=== PATIENT | female | born 1965 | race Caucasian/White ===

== ENCOUNTER 2020-04-13 10:18 | Emergency (ER) | payer MEDICAID ==
[2020-04-13] MEDS ORDERED: Sodium Chloride 0.9% 1,000 ML IV ONE (10:22)
[2020-04-13] MEDS ORDERED: Sodium Chloride 0.9% 10 ML Syringe FLUSH PRN (10:22)
--- NOTE | 2020-04-13 10:38 | EDM.PDOC ---
ED HPI GENERAL MEDICAL PROBLEM - General Chief Complaint: Syncope Stated Complaint: Near syncope Time Seen by Provider: 04/13/20 10:30 Source of Information: Reports: Patient, EMS History Limitations: Reports: No Limitations - History of Present Illness INITIAL COMMENTS - FREE TEXT/NARRATIVE: Presents with a near syncopal episode at work. 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 She did not lose consciousness, there was no trauma. Patient was wearing a face shield at work, and states she doesn't tolerated it well. She also states she hasn't eaten today due to abdominal pain from IBS. She was prescribed a new IBS medication because she didn't tolerate the side effects. Planned to start the new medication today after work. Patient had an episode of emesis in the ambulance, EMS gave Zofran 4mg IM. PMHx includes IBS and HTN. Complains of abdominal pain. Denies chest pain or SOB. Patient refuses to open her eyes but answers questions appropriately. Denies alcohol or drug use, and does not smoke. Onset: Today, Sudden Severity: Moderate - Related Data Allergies Allergy/AdvReac Type Severity Reaction Status Date / Time aspirin Allergy Hives Verified 04/13/20 10:39 fluconazole [From Diflucan] Allergy Hives Verified 04/13/20 10:39 Home Meds: Home Meds Lisinopril 20 mg PO DAILY 06/30/16 [History] Pnv95/Iron Fum/Folic Acid [ Caplet] 1 each PO DAILY 06/30/16 [History] Cefuroxime [Ceftin] 250 mg PO BID #14 tab 04/13/20 [Rx] Past Medical History Cardiovascular History: Reports: Hypertension. Denies: CAD Gastrointestinal History: Reports: Irritable Bowel Syndrome Social & Family History - Tobacco Use Tobacco Use Within Last Twelve Months: No - Caffeine Use Caffeine Use: Reports: Coffee, Soda - Alcohol Use Alcohol Use History: No Alcohol Use in Last Twelve Months: No - Recreational Drug Use Recreational Drug Use: No ED ROS GENERAL - Review of Systems Review Of Systems: Comprehensive ROS is negative, except as noted in HPI. ED EXAM, NEURO - Physical Exam Exam: See Below Exam Limited By: No Limitations General Appearance: Alert, WD/WN, No Apparent Distress Eye Exam: Bilateral Eye: EOMI, PERRL Throat/Mouth: Normal Inspection, Normal Lips, Normal Teeth, Normal Oropharynx, No Airway Compromise Head Exam: Atraumatic, Normocephalic Neck: Supple Respiratory/Chest: No Respiratory Distress, Lungs Clear, Normal Breath Sounds Cardiovascular: Regular Rate, Rhythm, No Murmur GI/Abdominal: Normal Bowel Sounds, Soft, No Distention, Tender (epigastric). No: Guarding Neurological: Alert, Normal Mood/Affect, CN II-XII Intact, No Motor/Sensory Deficits, Oriented x 3, Other (GCS 14) Extremities: Normal Inspection, Normal Range of Motion, No Pedal Edema Psychiatric: Normal Affect, Normal Mood Skin Exam: Warm, Dry, Intact, Normal Color, No Rash EKG INTERPRETATION EKG Date: 04/13/20 Time: 10:24 Rhythm: NSR Rate (Beats/Min): 76 [place]: Normal P-Wave: Present QRS: Normal ST-T: Normal QT: Normal Comparison: NA - No Prior EKG Course - Vital Signs Last Recorded V/S: Last Vital Signs Temp 35.9 C L 04/13/20 10:20 Pulse 75 04/13/20 10:20 Resp 17 04/13/20 10:20 BP 131/90 04/13/20 10:20 Pulse Ox 99 04/13/20 10:20 - Orders/Labs/Meds Orders: Active Orders 24 hr Category Date Time Status EKG Documentation Completion [RC] ASDIRECTED Care 04/13/20 10:22 Active CULTURE BLOOD [BC] Urgent Lab 04/13/20 10:35 Received CULTURE BLOOD [BC] Urgent Lab 04/13/20 10:40 Received CULTURE URINE [RM] Stat Lab 04/13/20 12:15 Ordered Cefuroxime [Ceftin] Med 04/13/20 12:18 Once 250 mg PO ONETIME ONE Sodium Chloride 0.9% [Saline Flush] Med 04/13/20 10:22 Active 10 ml FLUSH ASDIRECTED PRN Blood Culture x2 Reflex Set [OM.PC] Urgent Oth 04/13/20 10:32 Ordered Saline Lock Insert [OM.PC] Routine Oth 04/13/20 10:22 Ordered EKG 12 Lead [EK] Stat Ther 04/13/20 10:21 Ordered Medication Orders Sodium Chloride (Saline Flush) 10 ml FLUSH ASDIRECTED PRN PRN Reason: Keep Vein Open Labs: Laboratory Tests 04/13/20 04/13/20 04/13/20 Range/Units 10:35 10:35 10:35 WBC 7.8 (4.5-12.0) X10-3/uL RBC 4.25 (3.23-5.20) x10(6)uL Hgb 14.5 (11.5-15.5) g/dL Hct 43.2 (30.0-51.3) % MCV 101.8 H (80-96) fL MCH 34.2 H (27.7-33.6) pg MCHC 33.6 (32.2-35.4) g/dL RDW 12.1 (11.5-15.5) % Plt Count 192 (125-369) X10(3)uL MPV 6.5 L (7.4-10.4) fL Neut % (Auto) 69.3 (46-82) % Lymph % (Auto) 23.3 (13-37) % [place] % (Auto) 5.5 (4-12) % Eos % (Auto) 1 (1.0-5.0) % Baso % (Auto) 1 (0-2) % Neut # (Auto) 5.5 (1.6-8.3) # Lymph # (Auto) 1.8 (0.6-5.0) # [place] # (Auto) 0.4 (0.0-1.3) # Eos # (Auto) 0.1 (0.0-0.8) # Baso # (Auto) 0.0 (0.0-0.2) # PT (9.0-11.1) sec INR (1.00-1.24) APTT (24.4-33.2) SECONDS Sodium 137 (135-145) mmol/L Potassium 3.4 L (3.5-5.3) mmol/L Chloride 102 (100-110) mmol/L Carbon Dioxide 23 (21-32) mmol/L BUN 14 (7-18) mg/dL Creatinine 0.7 (0.55-1.02) mg/dL Est Cr Clr Drug Dosing TNP Estimated GFR (MDRD) > 60 (>60) BUN/Creatinine Ratio 20.0 (9-20) Glucose 175 H (80-116) mg/dL Lactic Acid 2.0 (0.4-2.0) mmol/L Calcium 9.0 (8.6-10.2) mg/dL Magnesium (1.8-2.5) mg/dL Total Bilirubin 0.7 (0.1-1.3) mg/dL AST 19 (5-25) IU/L ALT 22 (12-36) U/L Alkaline Phosphatase 97 (56-112) IU/L Troponin I (4.0-60.3) pg/mL Total Protein 7.8 (6.0-8.0) g/dL Albumin 3.9 (3.5-5.2) g/dL Globulin 3.9 g/dL Albumin/Globulin Ratio 1.0 Lipase (73-393) U/L Urine Color (YELLOW) Urine Appearance (CLEAR) Urine pH (5.0-6.5) Ur Specific [place] (1.010-1.025) Urine Protein (NEGATIVE) mg/dL Urine Glucose (UA) (NORMAL) mg/dL Urine Ketones (NEGATIVE) mg/dL Urine Occult Blood (NEGATIVE) Urine Nitrite (NEGATIVE) Urine Bilirubin (NEGATIVE) Urine Urobilinogen (NEGATIVE) mg/dL Ur Leukocyte Esterase (NEGATIVE) Urine WBC (0-5) Ur Squamous Epith Cells (NS,R,O) Urine Bacteria (NS) Urine Opiates Screen (NEGATIVE) Ur Oxycodone Screen (NEGATIVE) Ur Propoxyphene Screen (NEGATIVE) Ur Barbituates Screen (NEGATIVE) Ur Tricyclics Screen (NEGATIVE) Ur Phencyclidine Scrn (NEGATIVE) Ur Amphetamine Screen (NEGATIVE) Urine MDMA Screen (NEGATIVE) U Benzodiazepines Scrn (NEGATIVE) U Cocaine Metab Screen (NEGATIVE) U Marijuana (THC) Screen (NEGATIVE) Ethyl Alcohol (<0.03) % 04/13/20 04/13/20 04/13/20 Range/Units 10:35 10:35 10:35 WBC (4.5-12.0) X10-3/uL RBC (3.23-5.20) x10(6)uL Hgb (11.5-15.5) g/dL Hct (30.0-51.3) % MCV (80-96) fL MCH (27.7-33.6) pg MCHC (32.2-35.4) g/dL RDW (11.5-15.5) % Plt Count (125-369) X10(3)uL MPV (7.4-10.4) fL Neut % (Auto) (46-82) % Lymph % (Auto) (13-37) % [place] % (Auto) (4-12) % Eos % (Auto) (1.0-5.0) % Baso % (Auto) (0-2) % Neut # (Auto) (1.6-8.3) # Lymph # (Auto) (0.6-5.0) # [place] # (Auto) (0.0-1.3) # Eos # (Auto) (0.0-0.8) # Baso # (Auto) (0.0-0.2) # PT 10.7 (9.0-11.1) sec INR 0.99 L (1.00-1.24) APTT 23.3 L (24.4-33.2) SECONDS Sodium (135-145) mmol/L Potassium (3.5-5.3) mmol/L Chloride (100-110) mmol/L Carbon Dioxide (21-32) mmol/L BUN (7-18) mg/dL Creatinine (0.55-1.02) mg/dL Est Cr Clr Drug Dosing Estimated GFR (MDRD) (>60) BUN/Creatinine Ratio (9-20) Glucose (80-116) mg/dL Lactic Acid (0.4-2.0) mmol/L Calcium (8.6-10.2) mg/dL Magnesium 1.7 L (1.8-2.5) mg/dL Total Bilirubin (0.1-1.3) mg/dL AST (5-25) IU/L ALT (12-36) U/L Alkaline Phosphatase (56-112) IU/L Troponin I < 4.0 L (4.0-60.3) pg/mL Total Protein (6.0-8.0) g/dL Albumin (3.5-5.2) g/dL Globulin g/dL Albumin/Globulin Ratio Lipase (73-393) U/L Urine Color (YELLOW) Urine Appearance (CLEAR) Urine pH (5.0-6.5) Ur Specific [place] (1.010-1.025) Urine Protein (NEGATIVE) mg/dL Urine Glucose (UA) (NORMAL) mg/dL Urine Ketones (NEGATIVE) mg/dL Urine Occult Blood (NEGATIVE) Urine Nitrite (NEGATIVE) Urine Bilirubin (NEGATIVE) Urine Urobilinogen (NEGATIVE) mg/dL Ur Leukocyte Esterase (NEGATIVE) Urine WBC (0-5) Ur Squamous Epith Cells (NS,R,O) Urine Bacteria (NS) Urine Opiates Screen (NEGATIVE) Ur Oxycodone Screen (NEGATIVE) Ur Propoxyphene Screen (NEGATIVE) Ur Barbituates Screen (NEGATIVE) Ur Tricyclics Screen (NEGATIVE) Ur Phencyclidine Scrn (NEGATIVE) Ur Amphetamine Screen (NEGATIVE) Urine MDMA Screen (NEGATIVE) U Benzodiazepines Scrn (NEGATIVE) U Cocaine Metab Screen (NEGATIVE) U Marijuana (THC) Screen (NEGATIVE) Ethyl Alcohol (<0.03) % 04/13/20 04/13/20 04/13/20 Range/Units 10:35 10:40 11:50 WBC (4.5-12.0) X10-3/uL RBC (3.23-5.20) x10(6)uL Hgb (11.5-15.5) g/dL Hct (30.0-51.3) % MCV (80-96) fL MCH (27.7-33.6) pg MCHC (32.2-35.4) g/dL RDW (11.5-15.5) % Plt Count (125-369) X10(3)uL MPV (7.4-10.4) fL Neut % (Auto) (46-82) % Lymph % (Auto) (13-37) % [place] % (Auto) (4-12) % Eos % (Auto) (1.0-5.0) % Baso % (Auto) (0-2) % Neut # (Auto) (1.6-8.3) # Lymph # (Auto) (0.6-5.0) # [place] # (Auto) (0.0-1.3) # Eos # (Auto) (0.0-0.8) # Baso # (Auto) (0.0-0.2) # PT (9.0-11.1) sec INR (1.00-1.24) APTT (24.4-33.2) SECONDS Sodium (135-145) mmol/L Potassium (3.5-5.3) mmol/L Chloride (100-110) mmol/L Carbon Dioxide (21-32) mmol/L BUN (7-18) mg/dL Creatinine (0.55-1.02) mg/dL Est Cr Clr Drug Dosing Estimated GFR (MDRD) (>60) BUN/Creatinine Ratio (9-20) Glucose (80-116) mg/dL Lactic Acid (0.4-2.0) mmol/L Calcium (8.6-10.2) mg/dL Magnesium (1.8-2.5) mg/dL Total Bilirubin (0.1-1.3) mg/dL AST (5-25) IU/L ALT (12-36) U/L Alkaline Phosphatase (56-112) IU/L Troponin I (4.0-60.3) pg/mL Total Protein (6.0-8.0) g/dL Albumin (3.5-5.2) g/dL Globulin g/dL Albumin/Globulin Ratio Lipase 72 L (73-393) U/L Urine Color Yellow (YELLOW) Urine Appearance Clear (CLEAR) Urine pH 8.0 H (5.0-6.5) Ur Specific [place] 1.015 (1.010-1.025) Urine Protein Negative (NEGATIVE) mg/dL Urine Glucose (UA) Normal (NORMAL) mg/dL Urine Ketones 15 H (NEGATIVE) mg/dL Urine Occult Blood Negative (NEGATIVE) Urine Nitrite Negative (NEGATIVE) Urine Bilirubin Negative (NEGATIVE) Urine Urobilinogen Normal (NEGATIVE) mg/dL Ur Leukocyte Esterase Small H (NEGATIVE) Urine WBC 5-10 H (0-5) Ur Squamous Epith Cells Few H (NS,R,O) Urine Bacteria Many H (NS) Urine Opiates Screen (NEGATIVE) Ur Oxycodone Screen (NEGATIVE) Ur Propoxyphene Screen (NEGATIVE) Ur Barbituates Screen (NEGATIVE) Ur Tricyclics Screen (NEGATIVE) Ur Phencyclidine Scrn (NEGATIVE) Ur Amphetamine Screen (NEGATIVE) Urine MDMA Screen (NEGATIVE) U Benzodiazepines Scrn (NEGATIVE) U Cocaine Metab Screen (NEGATIVE) U Marijuana (THC) Screen (NEGATIVE) Ethyl Alcohol < 0.03 (<0.03) % 04/13/20 Range/Units 11:50 WBC (4.5-12.0) X10-3/uL RBC (3.23-5.20) x10(6)uL Hgb (11.5-15.5) g/dL Hct (30.0-51.3) % MCV (80-96) fL MCH (27.7-33.6) pg MCHC (32.2-35.4) g/dL RDW (11.5-15.5) % Plt Count (125-369) X10(3)uL MPV (7.4-10.4) fL Neut % (Auto) (46-82) % Lymph % (Auto) (13-37) % [place] % (Auto) (4-12) % Eos % (Auto) (1.0-5.0) % Baso % (Auto) (0-2) % Neut # (Auto) (1.6-8.3) # Lymph # (Auto) (0.6-5.0) # [place] # (Auto) (0.0-1.3) # Eos # (Auto) (0.0-0.8) # Baso # (Auto) (0.0-0.2) # PT (9.0-11.1) sec INR (1.00-1.24) APTT (24.4-33.2) SECONDS Sodium (135-145) mmol/L Potassium (3.5-5.3) mmol/L Chloride (100-110) mmol/L Carbon Dioxide (21-32) mmol/L BUN (7-18) mg/dL Creatinine (0.55-1.02) mg/dL Est Cr Clr Drug Dosing Estimated GFR (MDRD) (>60) BUN/Creatinine Ratio (9-20) Glucose (80-116) mg/dL Lactic Acid (0.4-2.0) mmol/L Calcium (8.6-10.2) mg/dL Magnesium (1.8-2.5) mg/dL Total Bilirubin (0.1-1.3) mg/dL AST (5-25) IU/L ALT (12-36) U/L Alkaline Phosphatase (56-112) IU/L Troponin I (4.0-60.3) pg/mL Total Protein (6.0-8.0) g/dL Albumin (3.5-5.2) g/dL Globulin g/dL Albumin/Globulin Ratio Lipase (73-393) U/L Urine Color (YELLOW) Urine Appearance (CLEAR) Urine pH (5.0-6.5) Ur Specific [place] (1.010-1.025) Urine Protein (NEGATIVE) mg/dL Urine Glucose (UA) (NORMAL) mg/dL Urine Ketones (NEGATIVE) mg/dL Urine Occult Blood (NEGATIVE) Urine Nitrite (NEGATIVE) Urine Bilirubin (NEGATIVE) Urine Urobilinogen (NEGATIVE) mg/dL Ur Leukocyte Esterase (NEGATIVE) Urine WBC (0-5) Ur Squamous Epith Cells (NS,R,O) Urine Bacteria (NS) Urine Opiates Screen Negative (NEGATIVE) Ur Oxycodone Screen Negative (NEGATIVE) Ur Propoxyphene Screen Negative (NEGATIVE) Ur Barbituates Screen Negative (NEGATIVE) Ur Tricyclics Screen Negative (NEGATIVE) Ur Phencyclidine Scrn Negative (NEGATIVE) Ur Amphetamine Screen Negative (NEGATIVE) Urine MDMA Screen Negative (NEGATIVE) U Benzodiazepines Scrn Negative (NEGATIVE) U Cocaine Metab Screen Negative (NEGATIVE) U Marijuana (THC) Screen Negative (NEGATIVE) Ethyl Alcohol (<0.03) % Meds: Medications Generic Name Dose Route Start Last Admin Trade Name Freq PRN Reason Stop Dose Admin Sodium Chloride 10 ml 04/13/20 10:22 Saline Flush FLUSH ASDIRECTED PRN Keep Vein Open Discontinued Medications Generic Name Dose Route Start Last Admin Trade Name Freq PRN Reason Stop Dose Admin Sodium Chloride 1,000 mls @ 999 mls/hr 04/13/20 10:22 04/13/20 10:48 Normal Saline IV 04/13/20 11:22 999 mls/hr .BOLUS ONE Administration - Re-Assessments/Exams Free Text/Narrative Re-Assessment/Exam: 04/13/20 11:33 Feeling better. Eyes open. GCS=15 Departure - Departure Time of Disposition: 12:19 Disposition: Home, Self-Care 01 Condition: Good Clinical Impression: Near syncope UTI (urinary tract infection) Qualifiers: Urinary tract infection type: acute cystitis Hematuria presence: without hematuria Qualified Code(s): N30.00 - Acute cystitis without hematuria - Discharge Information *PRESCRIPTION DRUG MONITORING PROGRAM REVIEWED*: No *COPY OF PRESCRIPTION DRUG MONITORING REPORT IN PATIENT KAY: Not Applicable Prescriptions: Cefuroxime [Ceftin] 250 mg PO BID #14 tab Referrals: Luz Maria Mcclelland NP [Primary Care Provider] - 3 Days Forms: ED Department Discharge, ED Return to Work/School Form Additional Instructions: Rest, drink plenty of fluids. [facility] [place] in [place]. Start your new IBS medication today. Follow up with your primary physician in 2-3 days. Return to the ER as needed. Sepsis Event Note (ED) - Focused Exam Vital Signs: Vital Signs Temp Pulse Resp BP Pulse Ox 04/13/20 10:20 35.9 C L 75 17 131/90 99 - My Orders Last 24 Hours: My Active Orders 04/13/20 10:21 EKG 12 Lead [EK] Stat 04/13/20 10:22 EKG Documentation Completion [RC] ASDIRECTED Sodium Chloride 0.9% [Saline Flush] 10 ml FLUSH ASDIRECTED PRN Saline Lock Insert [OM.PC] Routine 04/13/20 10:32 Blood Culture x2 Reflex Set [OM.PC] Urgent 04/13/20 10:35 CULTURE BLOOD [BC] Urgent 04/13/20 10:40 CULTURE BLOOD [BC] Urgent 04/13/20 12:15 CULTURE URINE [RM] Stat 04/13/20 12:18 Cefuroxime [Ceftin] 250 mg PO ONETIME ONE - Assessment/Plan Last 24 Hours: My Active Orders 04/13/20 10:21 EKG 12 Lead [EK] Stat 04/13/20 10:22 EKG Documentation Completion [RC] ASDIRECTED Sodium Chloride 0.9% [Saline Flush] 10 ml FLUSH ASDIRECTED PRN Saline Lock Insert [OM.PC] Routine 04/13/20 10:32 Blood Culture x2 Reflex Set [OM.PC] Urgent 04/13/20 10:35 CULTURE BLOOD [BC] Urgent 04/13/20 10:40 CULTURE BLOOD [BC] Urgent 04/13/20 12:15 CULTURE URINE [RM] Stat 04/13/20 12:18 Cefuroxime [Ceftin] 250 mg PO ONETIME ONE
[2020-04-13 10:58] VITALS: BP 131/90; PULSE 75
[2020-04-13] MEDS ORDERED: Cefuroxime 250 MG Tab PO ONE (12:18)
== END 2020-04-13 13:56 | disposition home or self-care (01) ==
LOC: FB.ED 10:18
DX: N30.00 Acute cystitis without hematuria (principal); R55 Syncope and collapse; I10 Essential (primary) hypertension; Z88.6 Allergy status to analgesic agent; Z88.1 Allergy status to other antibiotic agents; Z79.899 Other long term (current) drug therapy
CPT/HCPCS: 36415; 80053; 80305; 80307; 81001; 83605; 83690; 83735; 84484; 85025; 85610; 85730; 87040; 87086; 87088; 87186; 93005; 96360; 99284; A9270; J7030

== ENCOUNTER 2020-05-24 11:38 | Emergency (ER) | payer MEDICAID, OTHER ==
[2020-05-24] MEDS ORDERED: Ondansetron 4 MG Tab.DIS PO ONE (11:39)
[2020-05-24] MEDS ORDERED: Meclizine 25 MG Tab PO ONE (11:39)
[2020-05-24] MEDS ORDERED: LORazepam 2 MG/ML SDV IVPUSH STA (12:09)
[2020-05-24] MEDS ORDERED: Meclizine 25 MG Tab PO STA (12:09)
[2020-05-24] MEDS ORDERED: Ondansetron 4 MG/2 ML SDV IVPUSH STA (12:09)
[2020-05-24] MEDS ORDERED: Sodium Chloride 0.9% 1,000 ML IV SCH (12:15)
[2020-05-24] MEDS ORDERED: Iopamidol 755 Mg/ML 100 ML Bottle IV ONE (13:26)
[2020-05-24] MEDS ORDERED: Metoclopramide 10 MG/2 ML SDV IVPUSH ONE (14:12)
--- NOTE | 2020-05-24 14:40 | EDM.PDOC ---
ED HPI GENERAL MEDICAL PROBLEM - General Chief Complaint: Neuro Symptoms/Deficits Time Seen by Provider: 05/24/20 12:00 Source of Information: Reports: Patient History Limitations: Reports: No Limitations - History of Present Illness INITIAL COMMENTS - FREE TEXT/NARRATIVE: Patient presented to the ED because of a near syncopal episode. She was in the bathroom when all of a sudden she have vertigo nausea and vomiting. Denies any chest pain, palpitations. There is no headache, tinnitus, cough/cold fever or chills. abdomen Pain Score (Numeric/FACES): 6 - Related Data Allergies Allergy/AdvReac Type Severity Reaction Status Date / Time aspirin Allergy Hives Verified 05/24/20 11:58 fluconazole [From Diflucan] Allergy Hives Verified 05/24/20 11:58 Home Meds: Home Meds Hyoscyamine [Levsin] 0.125 mg PO TID PRN 05/24/20 [History] Meclizine [Antivert] 25 mg PO Q6H PRN #15 tab.chew 05/24/20 [Rx] Ondansetron [Zofran ODT] 4 mg PO Q4H PRN #7 tab.dis 05/24/20 [Rx] amLODIPine [Norvasc] 5 mg PO DAILY 05/24/20 [History] Past Medical History - Past Health History Medical/Surgical History: Denies Medical/Surgical History HEENT History: Reports: Impaired Vision Cardiovascular History: Reports: Hypertension Other Cardiovascular History: on amlodipine. 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 Neurological History: Reports: Other (See Below) Other Neuro History: syncopal episode. Social & Family History - Family History Family Medical History: Noncontributory - Tobacco Use Smoking Status *Q: Never Smoker Second Hand Smoke Exposure: No - Caffeine Use Caffeine Use: Reports: Coffee - Recreational Drug Use Recreational Drug Use: No ED ROS GENERAL - Review of Systems Review Of Systems: See Below Constitutional: Reports: No Symptoms HEENT: Reports: No Symptoms Respiratory: Reports: No Symptoms Cardiovascular: Reports: No Symptoms Endocrine: Reports: No Symptoms GI/Abdominal: Reports: Abdominal Pain, Nausea. Denies: Vomiting : Reports: No Symptoms Musculoskeletal: Reports: No Symptoms Skin: Reports: No Symptoms Neurological: Reports: No Symptoms ED EXAM, GENERAL - Physical Exam Exam: See Below Exam Limited By: No Limitations General Appearance: Alert, No Apparent Distress Eye Exam: Bilateral Eye: PERRL Ears: Normal External Exam, Normal Canal Nose: Normal Inspection, Normal Mucosa Throat/Mouth: Normal Inspection, Normal Lips, Normal Teeth Head: Atraumatic, Normocephalic Neck: Normal Inspection, Supple, Non-Tender, Full Range of Motion Respiratory/Chest: No Respiratory Distress, Lungs Clear, Normal Breath Sounds Cardiovascular: Normal Peripheral Pulses, Regular Rate, Rhythm, No Edema, No Gallop GI/Abdominal: Normal Bowel Sounds, Soft, Non-Tender, No Organomegaly Back Exam: Normal Inspection, Full Range of Motion Extremities: Normal Inspection, Normal Range of Motion, Non-Tender Neurological: Alert, Oriented, CN II-XII Intact, Normal Cognition Psychiatric: Normal Affect, Normal Mood Skin Exam: Warm, Dry, Intact, Normal Color, No Rash Course - Vital Signs Text/Narrative:: Labs,EKG,CXR,Head CT result was discussed with patient NS 1 L bolus Zofran 4 mg IV x1 Reglan 10 mg IV x1 Meclizine 50 mg po x1 Last Recorded V/S: Last Vital Signs Temp 36.3 C 05/24/20 11:55 Pulse 82 05/24/20 14:45 Resp 17 05/24/20 14:45 BP 131/81 05/24/20 14:45 Pulse Ox 99 05/24/20 14:45 - Orders/Labs/Meds Orders: Active Orders 24 hr Category Date Time Status Abdomen Pelvis w Cont [CT] Stat Exams 05/24/20 12:15 Taken Chest 1V Frontal [CR] Stat Exams 05/24/20 12:14 Taken EKG 12 Lead [EK] Routine Ther 05/24/20 12:07 Ordered EKG 12 Lead [EK] Routine Ther 05/24/20 12:14 Ordered Labs: Laboratory Tests 05/24/20 05/24/20 05/24/20 Range/Units 12:40 12:40 12:40 WBC 10.8 (4.5-12.0) X10-3/uL RBC 4.01 (3.23-5.20) x10(6)uL Hgb 13.7 (11.5-15.5) g/dL Hct 40.4 (30.0-51.3) % MCV 100.9 H (80-96) fL MCH 34.1 H (27.7-33.6) pg MCHC 33.8 (32.2-35.4) g/dL RDW 11.8 (11.5-15.5) % Plt Count 214 (125-369) X10(3)uL MPV 5.8 L (7.4-10.4) fL Add Manual Diff Yes Neutrophils % (Manual) 92 H (46-82) % Lymphocytes % (Manual) 7 L (13-37) % Monocytes % (Manual) 1 L (4-12) % Macrocytosis Few Sodium 140 (135-145) mmol/L Potassium 3.6 (3.5-5.3) mmol/L Chloride 103 (100-110) mmol/L Carbon Dioxide 26 (21-32) mmol/L BUN 14 (7-18) mg/dL Creatinine 0.6 (0.55-1.02) mg/dL Est Cr Clr Drug Dosing TNP Estimated GFR (MDRD) > 60 (>60) BUN/Creatinine Ratio 23.3 H (9-20) Glucose 138 H (80-116) mg/dL Calcium 8.7 (8.6-10.2) mg/dL Total Bilirubin 1.1 (0.1-1.3) mg/dL AST 26 H D (5-25) IU/L ALT 25 D (12-36) U/L Alkaline Phosphatase 92 (56-112) IU/L Total Protein 7.5 (6.0-8.0) g/dL Albumin 3.9 (3.5-5.2) g/dL Globulin 3.6 g/dL Albumin/Globulin Ratio 1.1 Amylase 56 (25-115) U/L Lipase 84 (73-393) U/L Urine Color (YELLOW) Urine Appearance (CLEAR) Urine pH (5.0-6.5) Ur Specific [place] (1.010-1.025) Urine Protein (NEGATIVE) mg/dL Urine Glucose (UA) (NORMAL) mg/dL Urine Ketones (NEGATIVE) mg/dL Urine Occult Blood (NEGATIVE) Urine Nitrite (NEGATIVE) Urine Bilirubin (NEGATIVE) Urine Urobilinogen (NEGATIVE) mg/dL Ur Leukocyte Esterase (NEGATIVE) Urine WBC (0-5) Ur Squamous Epith Cells (NS,R,O) Urine Bacteria (NS) 05/24/20 Range/Units 13:20 WBC (4.5-12.0) X10-3/uL RBC (3.23-5.20) x10(6)uL Hgb (11.5-15.5) g/dL Hct (30.0-51.3) % MCV (80-96) fL MCH (27.7-33.6) pg MCHC (32.2-35.4) g/dL RDW (11.5-15.5) % Plt Count (125-369) X10(3)uL MPV (7.4-10.4) fL Add Manual Diff Neutrophils % (Manual) (46-82) % Lymphocytes % (Manual) (13-37) % Monocytes % (Manual) (4-12) % Macrocytosis Sodium (135-145) mmol/L Potassium (3.5-5.3) mmol/L Chloride (100-110) mmol/L Carbon Dioxide (21-32) mmol/L BUN (7-18) mg/dL Creatinine (0.55-1.02) mg/dL Est Cr Clr Drug Dosing Estimated GFR (MDRD) (>60) BUN/Creatinine Ratio (9-20) Glucose (80-116) mg/dL Calcium (8.6-10.2) mg/dL Total Bilirubin (0.1-1.3) mg/dL AST (5-25) IU/L ALT (12-36) U/L Alkaline Phosphatase (56-112) IU/L Total Protein (6.0-8.0) g/dL Albumin (3.5-5.2) g/dL Globulin g/dL Albumin/Globulin Ratio Amylase (25-115) U/L Lipase (73-393) U/L Urine Color Yellow (YELLOW) Urine Appearance Clear (CLEAR) Urine pH 7.0 H (5.0-6.5) Ur Specific [place] 1.010 (1.010-1.025) Urine Protein Negative (NEGATIVE) mg/dL Urine Glucose (UA) Normal (NORMAL) mg/dL Urine Ketones 15 H (NEGATIVE) mg/dL Urine Occult Blood Negative (NEGATIVE) Urine Nitrite Negative (NEGATIVE) Urine Bilirubin Negative (NEGATIVE) Urine Urobilinogen Normal (NEGATIVE) mg/dL Ur Leukocyte Esterase Negative (NEGATIVE) Urine WBC 0-5 (0-5) Ur Squamous Epith Cells Few H (NS,R,O) Urine Bacteria Few H (NS) Meds: Medications Discontinued Medications Generic Name Dose Route Start Last Admin Trade Name Freq PRN Reason Stop Dose Admin Sodium Chloride 1,000 mls @ 999 mls/hr 05/24/20 12:15 05/24/20 12:17 Normal Saline IV 999 mls/hr ASDIRECTED TIA Administration Iopamidol 77 ml 05/24/20 13:26 05/24/20 13:38 Isovue-370 (76%) IV 05/24/20 13:27 77 ml . DIRECTED ONE Administration Lorazepam 1 mg 05/24/20 12:09 05/24/20 12:17 Ativan IVPUSH 05/24/20 12:10 1 mg NOW STA Administration Meclizine HCl 50 mg 05/24/20 12:09 05/24/20 12:17 Antivert PO 05/24/20 12:10 50 mg NOW STA Administration Metoclopramide HCl 10 mg 05/24/20 14:12 05/24/20 14:20 Reglan IVPUSH 05/24/20 14:13 10 mg ONETIME ONE Administration Ondansetron HCl 4 mg 05/24/20 12:09 05/24/20 12:17 Zofran IVPUSH 05/24/20 12:10 4 mg NOW STA Administration Departure - Departure Time of Disposition: 14:35 Disposition: Home, Self-Care 01 Condition: Good Clinical Impression: Near syncope, IBS (irritable bowel syndrome) - Discharge Information Prescriptions: Meclizine [Antivert] 25 mg PO Q6H PRN #15 tab.chew PRN Reason: vertigo Ondansetron [Zofran ODT] 4 mg PO Q4H PRN #7 tab.dis PRN Reason: Nausea Instructions: Near-Syncope, Irritable Bowel Syndrome, Adult Referrals: Luz Maria Mcclelland NP [Primary Care Provider] - Forms: ED Department Discharge Additional Instructions: Please read discharge instructions on near syncope and IBS Rest for the day Take your hyoscyamine as directed until your cramping pain and nausea is totally gone Meclizine 25 mg every 6 hours as needed for Zofran ODT 4 mg every 4 hours as needed for nausea Follow up as needed Sepsis Event Note (ED) - Evaluation Sepsis Screening Result: No Definite Risk - Focused Exam Vital Signs: Vital Signs Temp Pulse Resp BP Pulse Ox 05/24/20 14:45 82 17 131/81 99 05/24/20 13:00 87 14 142/89 H 99 05/24/20 12:30 85 13 144/66 H 100 05/24/20 11:55 36.3 C 91 17 159/88 H 100 - My Orders Last 24 Hours: My Active Orders 05/24/20 12:07 EKG 12 Lead [EK] Routine 05/24/20 12:14 Chest 1V Frontal [CR] Stat EKG 12 Lead [EK] Routine 05/24/20 12:15 Abdomen Pelvis w Cont [CT] Stat - Assessment/Plan Last 24 Hours: My Active Orders 05/24/20 12:07 EKG 12 Lead [EK] Routine 05/24/20 12:14 Chest 1V Frontal [CR] Stat EKG 12 Lead [EK] Routine 05/24/20 12:15 Abdomen Pelvis w Cont [CT] Stat
[2020-05-24 15:30] VITALS: BP 131/81; PULSE 82
--- NOTE | 2020-05-27 10:39 | CR ---
INDICATION: Near syncope. CHEST ONE VIEW: An AP upright view of the chest was obtained - no comparison. The aorta is tortuous with suggestion of some very minimal calcification in the arch area. Heart is normal in size and shape. Overlying EKG lead are noted. A nodular density is suggested at the lower lung field on the left which measures approximately 12 mm, this could represent a granuloma. If no old chest x-rays are available for comparison, a CT of the chest without contrast initially may be helpful for further evaluation. A definite active infiltrate or effusion was not identified. IMPRESSION: 1. No definite acute process. 2. Possible nodule at the lower lung field on the left. If no old chest x-rays are available for comparison, a repeat PA and lateral examination of the chest may be helpful for confirmation and then possibly CT scan without IV contrast. 3. ASD aorta. MTDD
== END 2020-05-24 15:15 | disposition home or self-care (01) ==
LOC: FB.ED 11:38
DX: R55 Syncope and collapse (principal); K58.9 Irritable bowel syndrome, unspecified; I10 Essential (primary) hypertension; Z88.8 Allergy status to other drugs, medicaments and biological substances; Z79.899 Other long term (current) drug therapy
CPT/HCPCS: 36415; 71045; 74177; 80053; 81001; 82150; 83690; 85025; 93005; 96361; 96374; 96375; 99285-25; A9270-GY; J2060; J2405; J2765; J7030; Q9967

== ENCOUNTER 2020-12-01 11:10 | Emergency (ER) | payer MEDICAID ==
[2020-12-01 11:32] VITALS: BP 147/74; PULSE 70
[2020-12-01] MEDS ORDERED: Meclizine 25 MG Tab PO STA (11:53)
--- NOTE | 2020-12-01 11:55 | EDM.PDOC ---
ED HPI GENERAL MEDICAL PROBLEM - General Chief Complaint: Syncope Stated Complaint: FAINTING Time Seen by Provider: 12/01/20 11:15 Source of Information: Reports: Patient, Family History Limitations: Reports: No Limitations - History of Present Illness INITIAL COMMENTS - FREE TEXT/NARRATIVE: Patient presented to the ED because of a syncopal episode. Patient was at [facility] for impacted cerumen removal While the cerumen was being removed patient felt dizzy and had a brief syncopal episode. She also had 1 episode of nausea and vomiting prior to having the syncope. STOMACH AND CHEST Pain Score (Numeric/FACES): 4 - Related Data Allergies Allergy/AdvReac Type Severity Reaction Status Date / Time aspirin Allergy Nausea and Verified 12/01/20 11:38 Vomiting fluconazole [From Diflucan] Allergy Hives Verified 12/01/20 11:38 Home Meds: Home Meds Hyoscyamine [Levsin] 0.125 mg PO TID PRN 05/24/20 [History] Meclizine [Antivert] 25 mg PO Q6H PRN #15 tab.chew 05/24/20 [Rx] Ondansetron [Zofran ODT] 4 mg PO Q4H PRN #7 tab.dis 05/24/20 [Rx] amLODIPine [Norvasc] 5 mg PO DAILY 05/24/20 [History] Past Medical History - Past Health History Medical/Surgical History: Denies Medical/Surgical History HEENT History: Reports: Impaired Vision Cardiovascular History: Reports: Hypertension Other Cardiovascular History: on amlodipine. 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 Musculoskeletal History: Reports: Fracture Neurological History: Reports: Vertigo, Other (See Below) Other Neuro History: syncopal episode. - Past Surgical History Female Surgical History: Reports: Tubal Ligation Social & Family History - Family History Family Medical History: No Pertinent Family History - Tobacco Use Tobacco Use Status *Q: Never Tobacco User - Caffeine Use Caffeine Use: Reports: None - Recreational Drug Use Recreational Drug Use: No ED ROS GENERAL - Review of Systems Review Of Systems: See Below Constitutional: Reports: No Symptoms HEENT: Reports: No Symptoms Respiratory: Reports: No Symptoms Cardiovascular: Reports: No Symptoms Endocrine: Reports: No Symptoms GI/Abdominal: Reports: No Symptoms : Reports: No Symptoms Musculoskeletal: Reports: No Symptoms Skin: Reports: No Symptoms Neurological: Reports: Dizziness Psychiatric: Reports: No Symptoms Hematologic/Lymphatic: Reports: No Symptoms Immunologic: Reports: No Symptoms ED EXAM, NEURO - Physical Exam Exam: See Below Exam Limited By: No Limitations General Appearance: Alert, No Apparent Distress Ears: Normal External Exam, Normal Canal, Hearing Grossly Normal, Normal TMs Nose: Normal Inspection, Normal Mucosa, No Blood Throat/Mouth: Normal Inspection, Normal Lips, Normal Teeth Head Exam: Atraumatic, Normocephalic Neck: Normal Inspection, Supple, Non-Tender, Full Range of Motion Cardiovascular: Normal Peripheral Pulses, Regular Rate, Rhythm, No Edema, No Gallop, No JVD, No Murmur, No Rub GI/Abdominal: Normal Bowel Sounds, Soft, Non-Tender, No Organomegaly, No Distention, No Abnormal Bruit, No Mass Neurological: Alert, Normal Mood/Affect, Normal Dorsiflexion, CN II-XII Intact, Normal Plantar Flexion, Normal Gait, Normal Reflexes, No Motor/Sensory Deficits, Oriented x 3 Course - Vital Signs Text/Narrative:: Labs/EKG result was discussed with patient and her Meclizine 25 mg PO x1 Klor Con 20 meq, 2 po x1 Last Recorded V/S: Last Vital Signs Temp 35.9 C L 12/01/20 11:10 Pulse 70 12/01/20 11:10 Resp 16 12/01/20 11:10 BP 147/74 H 12/01/20 11:10 Pulse Ox 100 12/01/20 11:10 - Orders/Labs/Meds Orders: Active Orders 24 hr Category Date Time Status EKG Documentation Completion [RC] ASDIRECTED Care 12/01/20 11:26 Active EKG 12 Lead [EK] Routine Ther 12/01/20 11:25 Ordered Labs: Laboratory Tests 12/01/20 12/01/20 Range/Units 11:40 11:40 WBC 7.4 (3.0-10.3) x10-3/uL RBC 3.93 (3.60-5.20) x10(6)uL Hgb 14.4 (11.4-15.5) g/dL Hct 41.3 (34.2-48.2) % MCV 105.1 H (76.7-100.5) fL MCH 36.6 H (23.9-33.9) pg MCHC 34.8 (31.9-34.8) g/dL RDW 14.6 (12.3-16.5) % Plt Count 193 (151-488) x10(3)uL MPV 6.6 L (7.1-12.4) fL Neut % (Auto) 80.5 H (30.8-76.2) % Lymph % (Auto) 13.1 L (18.4-52.1) % Cooke % (Auto) 4.5 (4.4-15.7) % Eos % (Auto) 1.5 (0.6-8.1) % Baso % (Auto) 0.4 (0.2-1.5) % Neut # (Auto) 5.9 (1.5-6.3) x10-3/uL Lymph # (Auto) 1.0 (1.0-4.4) x10-3/uL [place]oke # (Auto) 0.3 (0.3-1.0) x10-3/uL Eos # (Auto) 0.1 (0.0-0.8) x10-3/uL Baso # (Auto) 0.0 (0.0-0.1) x10-3/uL Sodium 141 (135-145) mmol/L Potassium 3.3 L (3.5-5.3) mmol/L Chloride 103 (100-110) mmol/L Carbon Dioxide 26 (21-32) mmol/L BUN 10 (7-18) mg/dL Creatinine 0.6 (0.55-1.02) mg/dL Est Cr Clr Drug Dosing TNP Estimated GFR (MDRD) > 60 (>60) BUN/Creatinine Ratio 16.7 (9-20) Glucose 146 H (80-116) mg/dL Calcium 8.9 (8.6-10.2) mg/dL Meds: Medications Discontinued Medications Generic Name Dose Route Start Last Admin Trade Name Freq PRN Reason Stop Dose Admin Meclizine HCl 25 mg 12/01/20 11:53 12/01/20 11:57 Meclizine 25 Mg Tab PO 12/01/20 11:54 25 mg NOW STA Administration Potassium Chloride 40 meq 12/01/20 11:57 12/01/20 12:02 Potassium Chloride 20 Meq Tab.Er PO 12/01/20 11:58 40 meq NOW STA Administration Departure - Departure Time of Disposition: 12:30 Disposition: Home, Self-Care 01 Condition: Good Clinical Impression: Vasovagal syncope, Hypokalemia - Discharge Information Instructions: Hypokalemia, Syncope, [id number] Forms: ED Department Discharge Additional Instructions: Please read discharge instructions on vasovagal syncope Increase oral fluids Rest for the day Meclizine 25 mg every 6 hours as needed for dizziness Follow up as needed Sepsis Event Note (ED) - Evaluation Sepsis Screening Result: No Definite Risk - Focused Exam Vital Signs: Vital Signs Temp Pulse Resp BP Pulse Ox 12/01/20 11:10 35.9 C L 70 16 147/74 H 100 - My Orders Last 24 Hours: My Active Orders 12/01/20 11:25 EKG 12 Lead [EK] Routine 12/01/20 11:26 EKG Documentation Completion [RC] ASDIRECTED - Assessment/Plan Last 24 Hours: My Active Orders 12/01/20 11:25 EKG 12 Lead [EK] Routine 12/01/20 11:26 EKG Documentation Completion [RC] ASDIRECTED
[2020-12-01] MEDS ORDERED: Potassium Chloride 20 MEQ Tab.ER PO STA (11:57)
== END 2020-12-01 12:16 | disposition home or self-care (01) ==
LOC: FB.ED 11:10
DX: R55 Syncope and collapse (principal); E87.6 Hypokalemia; I10 Essential (primary) hypertension; Z88.8 Allergy status to other drugs, medicaments and biological substances; Z79.899 Other long term (current) drug therapy
CPT/HCPCS: 36415; 80048; 85025; 93005; 99283; 99284; A9270

== ENCOUNTER 2024-08-15 16:34 | Emergency (ER) | payer BC, MEDICAID ==
[2024-08-15 16:52] VITALS: BP 163/99; PULSE 67
[2024-08-15 17:25] LABS: HEMATOCRIT 45.5 % (34.2-48.2); HEMOGLOBIN 15.8 g/dL (11.4-15.5); MEAN CORPUSCULAR HEMOGLOBIN 31.7 pg (23.9-33.9); MEAN CORPUSCULAR HGB CONC 34.6 g/dL (31.9-34.8); MEAN CORPUSCULAR VOLUME 91.5 fL (76.7-100.5); RED BLOOD CELL COUNT 4.97 x10(6)uL (3.60-5.20); RED CELL DISTRIBUTION WIDTH 12.6 % (12.3-16.5); WHITE BLOOD CELL COUNT,WBC 9.4 x10-3/uL (3.0-10.3)
[2024-08-15 17:35] LABS: BLOOD UREA NITROGEN,BUN 12 mg/dL (7-18); BUN/CREATININE RATIO 17.1 (9-20); CALCIUM 9.4 mg/dL (8.6-10.2); CARBON DIOXIDE,CO2 23 mmol/L (21-32); CHLORIDE,CL 106 mmol/L (100-110); CREATININE 0.7 mg/dL (0.55-1.02); EST CRCL DRUG DOSING (CG) 85.19 mL/min; ESTIMATED GFR 100 mL/min (>60); GLUCOSE RANDOM 133 mg/dL (80-116); POTASSIUM,K 3.4 mmol/L (3.5-5.3); SODIUM,NA 144 mmol/L (135-145)
[2024-08-15 17:41] LABS: ALANINE AMINOTRANSFERASE,ALT 33 U/L (12-36); ALBUMIN 3.9 g/dL (3.5-5.2); ALKALINE PHOSPHATASE 119 IU/L (56-112); ASPARTATE AMNIOTRANSFERASE,AST 25 IU/L (5-25); BILIRUBIN TOTAL 0.7 mg/dL (0.1-1.3); PROTEIN TOTAL,TP 7.9 g/dL (6.0-8.0)
[2024-08-15] MEDS: Sodium Chloride 0.9% 1,000 ML IV SCH (18:40)
[2024-08-15] MEDS: LORazepam 2 MG/ML SDV IVPUSH STA (18:40)
[2024-08-15] MEDS: Prochlorperazine 10 MG/2 ML SDV IVPUSH ONE (18:41)
[2024-08-15] MEDS: diphenhydrAMINE 50 MG/ML SDV IVPUSH ONE (18:42)
[2024-08-15] MEDS: Iopamidol 755 Mg/ML 100 ML Bottle IV SCH (19:01)
[2024-08-15] MEDS: cefTRIAXone 1 GM Vial IVPUSH STA (20:29)
[2024-08-15] MEDS: Meclizine 25 MG Tab PO STA (20:29)
[2024-08-15] MEDS: dexAMETHasone 12 MG in Sodium Chloride 0.9% 50 ML IVPUSH ONE (20:31)
== END 2024-08-15 21:10 | disposition home or self-care (01) ==
LOC: FB.ED 16:34
DX: G43.909 Migraine, unspecified, not intractable, without status migrainosus (principal); H66.92 Otitis media, unspecified, left ear; H60.92 Unspecified otitis externa, left ear; I10 Essential (primary) hypertension; Z79.899 Other long term (current) drug therapy; Z88.5 Allergy status to narcotic agent; Z88.8 Allergy status to other drugs, medicaments and biological substances
CPT/HCPCS: 36415; 70450; 70496; 70498; 80053; 82607; 83735; 84484; 85027; 93005; 93010; 96361; 96374; 96375; 99284; 99285; A9270; J0696; J0780; J1100; J1200; J2060; J3490; J7030; Q9967